=== PATIENT | male | born 1940 | race Caucasian/White ===

== ENCOUNTER → 2016-11-02 | Outpatient (CLI) | payer MEDICARE | END | disposition home or self-care (01) | LOC: PCVCIMAG 14:12 | PROVIDERS: ATTEND Internal Medicine Cardiovascular Disease | DX: E78.5 Hyperlipidemia, unspecified (principal); I35.0 Nonrheumatic aortic (valve) stenosis; G40.909 Epilepsy, unspecified, not intractable, without status epilepticus; I25.10 Atherosclerotic heart disease of native coronary artery without angina pectoris; F32.9 Major depressive disorder, single episode, unspecified; I65.23 Occlusion and stenosis of bilateral carotid arteries | CPT/HCPCS: 80061; 93005; 93306; 93880; G0463 ==

== ENCOUNTER → 2017-11-08 | Outpatient (CLI) | payer MEDICARE ==
[~2017-11-08] MED LIST: REGADENOSON 0.4 MG/5 ML DISP.SYRIN. IV
== END | disposition home or self-care (01) ==
LOC: PCVCIMAG 08:22
DX: I25.10 Atherosclerotic heart disease of native coronary artery without angina pectoris (principal); R06.00 Dyspnea, unspecified; I10 Essential (primary) hypertension; E78.5 Hyperlipidemia, unspecified; F17.200 Nicotine dependence, unspecified, uncomplicated
CPT/HCPCS: 78452; 93017; A9500; J2785

== ENCOUNTER → 2019-03-14 | Outpatient (CLI) | payer MEDICARE ==
--- NOTE | 2019-03-14 14:21 | PCVCIMAG ---
APPROVED REPORT Laterality: Bilateral Indications Stenosis Doppler Spectral Velocity Analysis PSV / EDVPSV / EDV ECA (R) 142 / 18 cm/sECA (L) 123 / 23 cm/s dICA (R) 88 / 24 cm/sdICA (L) 116 / 30 cm/s Victoriano (R) 79 / 26 cm/smICA (L) 100 / 23 cm/s pICA (R) 69 / 19 cm/spICA (L) 128 / 32 cm/s Bulb (R) 47 / 9 cm/sBulb (L) 59 / 11 cm/s dCCA (R) 62 / 12 cm/sdCCA (L) 69 / 14 cm/s mCCA (R) 82 / 13 cm/smCCA (L) 76 / 13 cm/s Vert (R) 52 / 15 cm/sVert (L) 27 / 10 cm/s ICA/CCA 1.42ICA/CCA 1.86 Findings The right carotid bulb has moderate calcified plaque. The right proximal internal carotid artery shows <40% stenosis. The right common carotid artery shows no significant stenosis. The right external carotid artery shows no significant stenosis. The left carotid bulb has moderate calcified plaque. The left proximal internal carotid artery shows 40-50% stenosis. The left common carotid artery shows no significant stenosis. The left external carotid artery shows no significant stenosis. Conclusion 1. Right internal carotid artery stenosis (less than 40%). 2. Left internal carotid artery stenosis (40-50%). 3. Antegrade vertebral flow
== END | disposition home or self-care (01) ==
LOC: PCVCIMAG 13:30
PROVIDERS: ATTEND Internal Medicine Cardiovascular Disease
DX: I65.23 Occlusion and stenosis of bilateral carotid arteries (principal); I25.10 Atherosclerotic heart disease of native coronary artery without angina pectoris; E78.5 Hyperlipidemia, unspecified; I10 Essential (primary) hypertension; E78.00 Pure hypercholesterolemia, unspecified; Z87.891 Personal history of nicotine dependence
CPT/HCPCS: 36415; 80061; 93005; 93880; G0463

== ENCOUNTER → 2019-03-21 | Outpatient (CLI) | payer MEDICARE ==
[~2019-03-21] MED LIST changes: -REGADENOSON 0.4 MG/5 ML DISP.SYRIN. IV; +REGADENOSON 0.4 MG/5 ML DISP.SYRIN. IV ONE
--- NOTE | 2019-03-26 10:48 | PCVCIMAG ---
APPROVED REPORT Imaging Protocol: Rest Tc-99m/Stress Tc-99m 1 day Study performed: 03/21/2019 09:21:40 Indication: Pre-Operative CV evaluation, CAD Patient Location: Out-Patient Stress Nurse: Rosamaria Bejarano RN [place] Tech:Nicole Hazel [facility] Ht: 5 ft 6 in Wt: 195 lbs BSA: 1.98 m2 HR: 68 bpm BP: 169/94 mmHg BMI: 31.4 Rhythm: Normal Sinus Rhythm, RBBB Medical History Medical History: HTN, Hyperlipidemia, CVD, CAD, Former Smoker Medications: Xanax, ASA Atorvastatin, Gabapentin, Keppre, Lisinopril, Metoprolol Allergies: Oxycoton Cardiac Risk Factors: Age Previous Cardiac Procedures: 2010 PCI - Stent to RCA Pretest Chest Pain Characteristics: No chest pain Resting Data Rest SPECT myocardial perfusion imaging was performed in supine position 45 minutes following the intravenous injection of 10 mCi of Tc-99m Sestamibi. Time of rest injection: 0845 Date: 03/21/2019 Administration Route: IV Administration Site: Right Arm Pharmacologic Stress Pharmacologic stress test was performed by injecting Regadenoson 0.4 mg IV push over 10-15 seconds immediately followed by the intravenous injection of 33.4 mCi of Tc-99m Sestamibi. Time of stress injection: 1000 Date: 03/21/2019 Administration Route: IV Administration Site: Right Arm Gated Stress SPECT was performed 45 minutes after stress injection. The images were gated to evaluate regional wall motion and calculate left ventricular ejection fraction. Stress Test Details Stress Test: Pharmacologic stress testing performed using 0.4 mg of regadenoson per 5 mL given IV over 10 seconds. Reason for pharmacologic stress test: physical limitation. HRMax Heart Rate (APMHR): 143 bpm Resting HR: 68 bpmTarget HR (85% APMHR): 121 bpm Max HR Achieved: 88 bpm % of APMHR: 61 Recovery HR: 80 bpm BP Resting BP: 169/94 mmHg Max BP: 147/84 mmHg Recovery BP: 160/80 mmHg ECG Resting ECG: Normal Sinus Rhythm, RBBB Stress ECG: Normal Sinus Rhythm, RBBB, PVC's Arrhythmia: PVC's Recovery ECG: Normal Sinus Rhythm, RBBB, PVC's Clinical Reason for Termination: Completed protocol Stress Symptoms: Chest pressure, Dyspnea Exercise duration: 0 min 55 sec Symptoms resolved with caffeine. Stress ECG Conclusion ECG: Non-ischemic Study Quality Study: Good Study Data Post stress, the left ventricular ejection was 78%.. SSS: 0 SRS: 0 SDS: 0 TID = 0.95. Perfusion No evidence of stress induced ischemia or prior myocardial infarction. Wall Motion Normal left ventricular size and function with no regional wall motion abnormalities. Nuclear Conclusion No evidence of stress induced ischemia or prior myocardial infarction. Normal left ventricular size and function with no regional wall motion abnormalities. Post stress, the left ventricular ejection was 78%. No change since prior study dated October 2017. Interpreted by: De Rogers MD Electronically Approved: 03/21/2019 12:26:09 <Conclusion> ECG: Non-ischemic
--- NOTE | 2019-03-26 15:13 | PCVCIMAG ---
APPROVED REPORT Study performed: 03/21/2019 07:50:01 EXAM: Comprehensive 2D, Doppler, and color-flow Echocardiogram Patient Location: Echo lab Status: routine BSA: 2.00 HR: 67 bpmBP: 130/90 mmHg Rhythm: NSR Other Information Study Quality: Adequate Risk Factors: Cardiac Risk Factors: HTN Indications CAD aortic stenosis 2D Dimensions IVSd: 15.49 (7-11mm)LVOT Diam: 21.43 (18-24mm) LVDd: 32.98 mm PWd: 13.49 (7-11mm)Ascending Ao: 32.88 (22-36mm) LVDs: 22.39 (25-40mm) Left Atrium: 29.43 (27-40mm) Aortic Root: 26.92 mm LV Single Plane 4CH: 52.10 % LV Single Plane 2CH: 54.55 % Biplane EF: 53.9 % Volumes Left Atrial Volume (Systole) Single Plane 4CH: 48.89 mLSingle Plane 2CH: 78.60 mL LA ESV Index: 31.00 mL/m2 Aortic Valve AoV Peak Hernan.: 2.79 m/s AO Peak Gr.: 31.23 mmHgLVOT Max P.86 mmHg AO Mean Gr.: 13.82 mmHgLVOT Mean P.96 mmHg AO V2 Mean: 1.66 m/sLVOT Max V: 0.98 m/s AO V2 VTI: 62.44 cmLVOT Mean V: 0.65 m/s RONNY (VTI): 1.42 mo3SDHH V1 VTI: 24.55 cm RONNY Vmax: 1.27 cm2 SV (LVOT): 88.51 mL Mitral Valve E/A Ratio: 0.6 MV Decel. Time: 259.90 ms MV E Max Hernan.: 0.51 m/s MV A Hernan.: 0.80 m/s IVRT: 152.25 ms Pulmonary Valve PV Peak Hernan.: 1.25 m/sPV Peak Gr.: 6.25 mmHg Pulmonary Vein P Vein S: 0.29 m/sP Vein A: 0.30 m/s P Vein D: 0.35 m/sP Vein A Dur.: 110.7 msec P Vein S/D Ratio: 0.83 Tricuspid Valve TR Peak Hernan.: 2.56 m/s TR Peak Gr.: 26.12 mmHg TV Vmax: 0.53 m/s Left Ventricle The left ventricle is normal size. There is normal LV segmental wall motion. Moderate concentric left ventricular hypertrophy. Left ventricular systolic function is normal. The left ventricular ejection fraction is within the normal range. LVEF is 55%. Grade I - abnormal relaxation pattern. Right Ventricle The right ventricle is normal size. The right ventricular systolic function is normal. Atria The left atrium size is normal. The right atrium size is normal. Aortic Valve The aortic valve is mildly to moderately calcified. The aortic valve is trileaflet. Trace aortic regurgitation. There is mild to moderate valvular aortic stenosis. Calculated aortic valve area is 1.3 cm2 with maximum pressure gradient of 31 mmHg and mean pressure gradient of 14 mmHg. Mitral Valve The mitral valve is normal in structure. There is no mitral valve regurgitation noted. No evidence of mitral valve stenosis. Tricuspid Valve The tricuspid valve is normal in structure. Mild tricuspid regurgitation with PAP of 33 mmHg. Pulmonic Valve The pulmonary valve is normal in structure. Mild pulmonic regurgitation. Great Vessels The aortic root is normal in size. IVC is normal in size and collapses >50% with inspiration. Pericardium There is no pericardial effusion. There is no pleural effusion. <Conclusion> The left ventricle is normal size. LVEF is 55%. Grade I - abnormal relaxation pattern. Moderate concentric left ventricular hypertrophy. The right ventricle is normal size. The left atrium size is normal. The aortic valve is mildly to moderately calcified. The aortic valve is trileaflet. There is mild to moderate valvular aortic stenosis. Calculated aortic valve area is 1.3 cm2 with maximum pressure gradient of 31 mmHg and mean pressure gradient of 14 mmHg. There is no mitral valve regurgitation noted. Mild tricuspid regurgitation with PAP of 33 mmHg. The aortic root is normal in size. There is no pericardial effusion.
== END | disposition home or self-care (01) ==
LOC: PCVCIMAG 08:03
PROVIDERS: ATTEND Internal Medicine Cardiovascular Disease
DX: Z01.810 Encounter for preprocedural cardiovascular examination (principal); I25.10 Atherosclerotic heart disease of native coronary artery without angina pectoris; E78.5 Hyperlipidemia, unspecified; I10 Essential (primary) hypertension; Z87.891 Personal history of nicotine dependence
CPT/HCPCS: 78452; 93017; 93306; A9500; J2785